=== PATIENT | male | born 1955 | race Caucasian/White ===

== ENCOUNTER 2018-02-17 20:30 | Emergency (ER) | payer OTHER ==
[~2018-02-17] VITALS: Ht 175.3 cm; Wt 116.6 kg
--- NOTE | ~2018-02-17 | EKG ---
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1955 Requested By: Madina Leblanc Order Number: [id number] MD: Kulwant Dowell Measurements Intervals [place] Rate: 73 P: 2 WA: 162 QRS: -23 QRSD: 83 T: -3 QT: 407 QTc: 449 Interpretive Statements Sinus rhythm Borderline left axis deviation Borderline T abnormalities, inferior leads Possible inferior infarct, age indeterminate Baseline wander in lead(s) V2 Compared to ECG 11/23/2016 21:06:23 No significant change was found Electronically Signed On 02-18-2018 7:48:30 CDT by Kulwant Dowell [email or web address] <ELECTRONICALLY SIGNED> By: Kulwant Dowell MD, [facility] 02/18/18 0748 33 33 Kulwant Dowell MD, [facility] /EPI
[~2018-02-17 20:30] MED LIST: ALEVE220 MG PO; ASPIR 8181 MG PO; ASPIRIN EC325 M1 PO; ASPIRIN325 PO; CRESTOR5 MG PO; EFFIENT10 MG PO; GLUCOPHAGE XR500 MG PO; GLUCOPHAGE500 MG PO; HYDROCODON-ACE1 EAC1 PO; HYDROCODONE-AP1 EACH PO; HYDROCODONE-APA1 TA1 PO; ISOSORBIDE DINI40 MG PO; LINZESS145 MCG PO; LISINOPRIL; LISINOPRIL PO; LISINOPRIL-HCT1 EAC2 PO; LIVALO2 MG PO; LOPRESSOR PO; LORTAB; Lortab PO; METHOCARBAMOL500 M2 PO; MOM PO; MULTI VITAMIN1 EACH PO; NAPROSYN500 MG PO; NITROGLYCERIN0.4 MG SL; NITROSTAT0.4 MG; NORVASC PO; NORVASC10 MG PO; PEPCID AC10 MG PO; PLAVIX 75 MG TA75 M1 PO; PLAVIX 75 MG TA75 MG PO; PREDNISONE50 MG PO; PRILOSEC 20 MG20 MG PO; PRINZIDE 20-121 EACH PO; PROTONIX40 M2 PO; REGLAN 10 MG TA10 MG PO; TOPAMAX PO; TOPAMAX100 MG PO; TOPAMAX25 M1 PO; TOPROL XL100 MG PO; ZESTORETIC 20-1 EAC3 PO; ZESTORETIC 20-1 EACH PO
[2018-02-17] MEDS ORDERED: LIPITOR 20 MG T20 M1 PO (20:43)
[2018-02-17 21:14] LABS: BASOPHILS 1.3 % (0.0-2.0); EOSINOPHILS 4.5 % (0.0-3.0); HEMATOCRIT 38.4 % (42.0-52.0); HEMOGLOBIN 13.1 gm/dL (14.0-18.0); LYMPHOCYTES 26.4 % (24.0-44.0); MCH 30.2 pg (26.0-34.0); MCHC 34.3 g/dL (28.0-37.0); MONOCYTES 8.8 % (1.0-8.0); PLATELET COUNT 321 thou/uL (150-400); RBC 4.36 mil/uL (4.50-6.00); RDW 13.1 % (10.5-14.5); WBC 6.8 thou/uL (4.0-11.0)
[2018-02-17 21:20] LABS: CALCIUM 9.1 mg/dL (8.5-10.1); POTASSIUM 3.5 mmol/L (3.5-5.1)
[2018-02-17] MEDS ORDERED: LEVAQUIN 750 M750 MG PO (21:45)
== END 2018-02-17 22:17 | disposition home or self-care (01) ==
LOC: ER 20:30
PROVIDERS: Emergency Medicine
DX: J18.9 Pneumonia, unspecified organism (principal); I25.10 Atherosclerotic heart disease of native coronary artery without angina pectoris; I10 Essential (primary) hypertension; J32.9 Chronic sinusitis, unspecified; G43.909 Migraine, unspecified, not intractable, without status migrainosus; E11.9 Type 2 diabetes mellitus without complications; F17.210 Nicotine dependence, cigarettes, uncomplicated; Z98.890 Other specified postprocedural states; Z90.89 Acquired absence of other organs; Z88.8 Allergy status to other drugs, medicaments and biological substances; Z88.7 Allergy status to serum and vaccine

== ENCOUNTER 2018-09-19 22:59 | Emergency (ER) | payer OTHER ==
[~2018-09-19] VITALS: Ht 175.3 cm; Wt 116.6 kg
[~2018-09-19 22:59] MED LIST changes: +LEVAQUIN 750 M750 MG PO; +LIPITOR 20 MG T20 M1 PO
[2018-09-19] MEDS ORDERED: METFORMIN HCL500 MG PO (23:23)
[2018-09-19] MEDS ORDERED: TRESIBA FL100 UNIT/1 SQ (23:24)
[2018-09-20] MEDS ORDERED: AMOXICILLIN 50500 M1 PO (00:47)
[2018-09-20] MEDS ORDERED: MOBIC15 MG PO (00:47)
== END 2018-09-20 01:32 | disposition home or self-care (01) ==
LOC: ER 22:59
DX: H66.92 Otitis media, unspecified, left ear (principal); H73.892 Other specified disorders of tympanic membrane, left ear; F17.210 Nicotine dependence, cigarettes, uncomplicated; I25.10 Atherosclerotic heart disease of native coronary artery without angina pectoris; I10 Essential (primary) hypertension; G43.909 Migraine, unspecified, not intractable, without status migrainosus; E11.9 Type 2 diabetes mellitus without complications; E78.5 Hyperlipidemia, unspecified; J32.9 Chronic sinusitis, unspecified; Z90.89 Acquired absence of other organs; Z79.4 Long term (current) use of insulin; Z88.8 Allergy status to other drugs, medicaments and biological substances; Z88.7 Allergy status to serum and vaccine

== ENCOUNTER 2018-10-22 00:01 | Inpatient (IN) | payer OTHER ==
[2018-10-22] VITALS (7 sets, daily range): BP systolic 130–169; BP diastolic 74–88
[~2018-10-22] VITALS: Ht 175.3 cm; Wt 102.1 kg
--- NOTE | ~2018-10-22 | EKG ---
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1955 Requested By: Jordin Guerrero Order Number: [id number] MD: Louis Delacruz Measurements Intervals [place] Rate: 64 P: -4 WI: 161 QRS: -13 QRSD: 87 T: -7 QT: 410 QTc: 423 Interpretive Statements Sinus rhythm Borderline T abnormalities, inferior leads Compared to ECG 02/17/2018 20:34:44 Myocardial infarct finding no longer present T-wave abnormality still present Electronically Signed On 10-23-2018 14:48:40 CORE PASTER by Louis Delacruz [email or web address] <ELECTRONICALLY SIGNED> By: Louis Delacruz MD 10/23/18 1448 1044 1044 Louis Delacruz MD /EPI
[~2018-10-22 00:01] MED LIST changes: +AMOXICILLIN 50500 M1 PO; +ATORVASTATIN CA40 MG PO; +DOXYCYCLINE 10100 MG PO; -ISOSORBIDE DINI40 MG PO; +ISOSORBIDE MONO30 M1 PO; -LIPITOR 20 MG T20 M1 PO; +MOBIC15 MG PO; +TOPAMAX200 MG PO; +TRESIBA FL100 UNIT/1 SQ
[2018-10-22 00:32] LABS: HEMATOCRIT 41.5 % (42.0-52.0); HEMOGLOBIN 14.7 gm/dL (14.0-18.0); MCH 31.1 pg (26.0-34.0); MCHC 35.3 g/dL (28.0-37.0); PLATELET COUNT 118 thou/uL (150-400); RBC 4.72 mil/uL (4.50-6.00); RDW 12.8 % (10.5-14.5); WBC 2.4 thou/uL (4.0-11.0)
[2018-10-22 00:43] LABS: CREATININE 1.1 mg/dL (0.7-1.3); POTASSIUM 3.3 mmol/L (3.5-5.1)
[2018-10-22 00:57] LABS: URINE BILIRUBIN NEGATIVE (Negative); URINE BLOOD 2+ (Negative); URINE CLARITY CLEAR; URINE COLOR YELLOW; URINE GLUCOSE-RANDOM* NEGATIVE (Negative); URINE KETONES NEGATIVE (Negative); URINE LEUKOCYTES-REFLEX NEGATIVE (Negative); URINE NITRITE-REFLEX NEGATIVE (Negative); URINE PROTEIN (DIPSTICK) TRACE (Negative); URINE SPECIFIC GRAVITY 1.025 (1.005-1.035)
[2018-10-22 01:15] LABS: BACTERIA-REFLEX None Seen /HPF (None Seen); CASTS None Seen /LPF (None Seen); CRYSTALS None Seen /LPF (None Seen); MUCUS None Seen strn/LPF (None Seen); SQUAMOUS None Seen /LPF (0-3); URINE RBC 3-10 Few /HPF (0-2); URINE WBC-REFLEX None Seen /HPF (0-5)
[2018-10-22 01:54] LABS: ATYPICAL LYMPHS 3 %; LARGE PLATELETS FEW
[2018-10-22 09:59] LABS: HEMATOCRIT 38.3 % (42.0-52.0); HEMOGLOBIN 13.7 gm/dL (14.0-18.0); MCH 31.5 pg (26.0-34.0); MCHC 35.7 g/dL (28.0-37.0); MCV 88.1 fL (80.0-100.0); RBC 4.35 mil/uL (4.50-6.00); RDW 13.3 % (10.5-14.5); WBC 2.5 thou/uL (4.0-11.0)
[2018-10-22 14:01] LABS: ALBUMIN 3.3 g/dL (3.4-5.0); DIRECT BILIRUBIN 0.1 mg/dL (<0.1-0.3); TOTAL BILIRUBIN 0.6 mg/dL (<0.1-1.0); TOTAL PROTEIN 6.1 g/dL (6.4-8.2)
[2018-10-22 15:16] LABS: % SATURATION 13 % (20-39); IRON 34 ug/dL (65-175); TIBC 255 ug/dL (250-450)
[2018-10-23 05:17] VITALS: BP 157/79
[2018-10-23 05:57] LABS: HEMOGLOBIN 13.3 gm/dL (14.0-18.0); MCH 30.9 pg (26.0-34.0); RBC 4.31 mil/uL (4.50-6.00)
[2018-10-23 05:59] LABS: HEMATOCRIT 37.9 % (42.0-52.0); MCHC 35.1 g/dL (28.0-37.0); MCV 87.9 fL (80.0-100.0)
[2018-10-23 06:00] LABS: WBC 1.9 thou/uL (4.0-11.0)
[2018-10-23 06:14] LABS: ALBUMIN 3.1 g/dL (3.4-5.0); CALCIUM 8.5 mg/dL (8.5-10.1); CREATININE 0.8 mg/dL (0.7-1.3); POTASSIUM 3.2 mmol/L (3.5-5.1); TOTAL BILIRUBIN 0.5 mg/dL (<0.1-1.0); TOTAL PROTEIN 6.1 g/dL (6.4-8.2)
[2018-10-23 07:10] VITALS: BP 132/78
[2018-10-23 11:27] VITALS: BP 132/78
[2018-10-23 15:30] VITALS: BP 154/7
[2018-10-23 16:10] LABS: HAV IgM AB (ANTI-HAV IgM) Negative (Negative); HEPATITIS B SURFACE AG Negative (Negative); HEPATITIS C VIRUS AB >11.0 (0.0-0.9)
[2018-10-24 02:45] VITALS: BP 150/79
[2018-10-24 05:49] LABS: HEMATOCRIT 35.2 % (42.0-52.0); HEMOGLOBIN 12.5 gm/dL (14.0-18.0); MCH 31.3 pg (26.0-34.0); MCHC 35.7 g/dL (28.0-37.0); MCV 87.9 fL (80.0-100.0); PLATELET COUNT 155 thou/uL (150-400); RDW 13.4 % (10.5-14.5); WBC 2.9 thou/uL (4.0-11.0)
[2018-10-24 06:04] LABS: ALBUMIN 2.8 g/dL (3.4-5.0); DIRECT BILIRUBIN 0.1 mg/dL (<0.1-0.3); TOTAL BILIRUBIN 0.5 mg/dL (<0.1-1.0); TOTAL PROTEIN 5.7 g/dL (6.4-8.2)
[2018-10-24 06:29] LABS: ABSOLUTE NEUTROPHILS 2.2 thou/uL (1.4-8.2); PLATELET ESTIMATE NORMAL
[2018-10-24 06:30] LABS: POLYCHROMASIA OCCASIONAL
[2018-10-24 07:00] VITALS: BP 127/77
[2018-10-24 15:53] VITALS: BP 155/96
[2018-10-25 03:07] VITALS: BP 140/88
[2018-10-25 05:28] LABS: HEMATOCRIT 36.7 % (42.0-52.0); MCH 31.2 pg (26.0-34.0); MCHC 35.5 g/dL (28.0-37.0); MCV 87.9 fL (80.0-100.0); RBC 4.18 mil/uL (4.50-6.00); RDW 13.5 % (10.5-14.5); WBC 3.3 thou/uL (4.0-11.0)
[2018-10-25 05:51] LABS: ALBUMIN 3.1 g/dL (3.4-5.0); CALCIUM 8.8 mg/dL (8.5-10.1); CREATININE 0.8 mg/dL (0.7-1.3); POTASSIUM 3.3 mmol/L (3.5-5.1); TOTAL BILIRUBIN 0.4 mg/dL (<0.1-1.0)
[2018-10-25 07:00] VITALS: BP 178/98
[2018-10-25 20:30] VITALS: BP 156/84
[2018-10-26 04:30] VITALS: BP 160/101
[2018-10-26 07:16] VITALS: BP 156/103
[2018-10-26 10:09] LABS: ALBUMIN 3.2 g/dL (3.4-5.0); CALCIUM 8.8 mg/dL (8.5-10.1); CREATININE 0.9 mg/dL (0.7-1.3); POTASSIUM 3.6 mmol/L (3.5-5.1); TOTAL BILIRUBIN 0.5 mg/dL (<0.1-1.0); TOTAL PROTEIN 6.2 g/dL (6.4-8.2)
[2018-10-26 16:20] VITALS: BP 146/95
[2018-10-26 19:20] VITALS: BP 136/76
[2018-10-27 07:45] VITALS: BP 160/89
[2018-10-27] MEDS ORDERED: LISINOPRIL20 MG PO (08:14)
[2018-10-27] MEDS ORDERED: OXYCODONE HCL30 MG PO (08:15)
[2018-10-27] MEDS ORDERED: CIPRO500 MG PO (08:16)
[2018-10-27] MEDS ORDERED: FLAGYL500 M1 PO (08:17)
[2018-10-27 09:32] VITALS: BP 160/89
== END 2018-10-27 10:02 | disposition home or self-care (01) | DRG 391 ==
LOC: ER 00:01 → 4E 03:50 → EROBS 03:50 → 4E 04:14
PROVIDERS: Emergency Medicine; Family Medicine; Internal Medicine Gastroenterology; Nurse Practitioner
PROC: 0DJ08ZZ Inspection of Upper Intestinal Tract, Via Natural or Artificial Opening Endoscopic (ICD-10-PCS; principal; 2018-10-23)
DX: K52.9 Noninfective gastroenteritis and colitis, unspecified (principal); K85.90 Acute pancreatitis without necrosis or infection, unspecified; D61.818 Other pancytopenia; R59.9 Enlarged lymph nodes, unspecified; I25.10 Atherosclerotic heart disease of native coronary artery without angina pectoris; I10 Essential (primary) hypertension; G43.909 Migraine, unspecified, not intractable, without status migrainosus; R16.0 Hepatomegaly, not elsewhere classified; E78.5 Hyperlipidemia, unspecified; K29.70 Gastritis, unspecified, without bleeding; E11.9 Type 2 diabetes mellitus without complications; F17.210 Nicotine dependence, cigarettes, uncomplicated; K29.80 Duodenitis without bleeding; E61.1 Iron deficiency; M47.894 Other spondylosis, thoracic region; E66.9 Obesity, unspecified; K59.09 Other constipation; G89.29 Other chronic pain; B19.20 Unspecified viral hepatitis C without hepatic coma; Z68.33 Body mass index [BMI] 33.0-33.9, adult; Z95.5 Presence of coronary angioplasty implant and graft; Z79.4 Long term (current) use of insulin; Z79.82 Long term (current) use of aspirin; Z79.84 Long term (current) use of oral hypoglycemic drugs; Z79.899 Other long term (current) drug therapy; Z88.7 Allergy status to serum and vaccine; Z88.8 Allergy status to other drugs, medicaments and biological substances; Z82.49 Family history of ischemic heart disease and other diseases of the circulatory system; Z23 Encounter for immunization
CPT/HCPCS: 10084; 62110; 62900; 70005

== ENCOUNTER 2018-10-28 02:13 | Emergency (ER) | payer OTHER ==
[~2018-10-28] VITALS: Ht 175.3 cm; Wt 111.6 kg
[~2018-10-28 02:13] MED LIST changes: +CIPRO500 MG PO; +FLAGYL500 M1 PO; +LISINOPRIL20 MG PO; +OXYCODONE HCL30 MG PO
[2018-10-28 02:57] VITALS: BP 144/65
== END 2018-10-28 02:59 | disposition home or self-care (01) ==
LOC: ER 02:13
DX: M25.552 Pain in left hip (principal); I10 Essential (primary) hypertension; G43.909 Migraine, unspecified, not intractable, without status migrainosus; E11.9 Type 2 diabetes mellitus without complications; I25.10 Atherosclerotic heart disease of native coronary artery without angina pectoris; Z95.5 Presence of coronary angioplasty implant and graft; F17.210 Nicotine dependence, cigarettes, uncomplicated; Z88.7 Allergy status to serum and vaccine; Z88.8 Allergy status to other drugs, medicaments and biological substances; W19.XXXA Unspecified fall, initial encounter; Y93.89 Activity, other specified; Y92.89 Other specified places as the place of occurrence of the external cause; Y99.8 Other external cause status